=== PATIENT | male | born 1975 | race Caucasian/White ===

== ENCOUNTER 2018-03-02 12:49 | Emergency (ER) | payer OTHER ==
[~2018-03-02] VITALS: Ht 172.7 cm; Wt 98.8 kg
[2018-03-02 13:49] LABS: HEMOGLOBIN 14.9 G/DL (12.5-16.6); MCH 31.8 PG (29.0-34.0); MCHC 35.5 G/DL (30.0-36.0); MCV 89.7 FL (86-99); PLATELET COUNT 172 K/uL (156-360); RBC DIS.WIDTH-CV 12.5 % (11.8-14.6); RBC DIS.WIDTH-SD 40.9 % (39-53); RED BLOOD COUNT 4.68 M/uL (4.00-5.50); WHITE BLOOD COUNT 9.5 K/uL (4.1-10.2)
[2018-03-02 14:00] LABS: CHLORIDE 102 mEq/L (99-109)
[2018-03-02 14:01] LABS: SODIUM 138 mEq/L (136-147)
[2018-03-02 14:02] LABS: GLUCOSE 92 mg/dL (70-99)
[2018-03-02 14:07] LABS: UREA NITROGEN (BUN) 16 mg/dL (9-23)
[2018-03-02 14:10] LABS: GFR ESTIMATE (CALCULATED) > 59 mL/min/ (58.99-99999)
[2018-03-02] MEDS ORDERED: KEFLEX500 MG PO (14:40)
[2018-03-02 14:47] VITALS: BP 146/86
== END 2018-03-02 14:48 | disposition home or self-care (01) ==
LOC: EME 12:49
PROVIDERS: Nurse Practitioner Family
DX: L03.116 Cellulitis of left lower limb (principal); Z88.0 Allergy status to penicillin
CPT/HCPCS: 80048; 85027; 93971; 99281; 99284; J0696